=== PATIENT | born 2005 ===

== ENCOUNTER → 2025-06-02 11:50 | Outpatient (ROUT) | payer SELFPAY ==
[2025-06-02 12:52] LABS: COVID-19 CEPHEID 4-PLEX PCR Negative; Influenza A - CEPHEID Flu A NEGATIVE; Influenza B - CEPHEID Flu B NEGATIVE
== END ==
PROVIDERS: Visit Provider Family Medicine
DX: R05.1 Acute cough (principal); R50.9 Fever, unspecified; R52 Pain, unspecified
CPT/HCPCS: 87637